=== PATIENT | female | born 1990 ===

== ENCOUNTER 2017-04-10 08:47 | Inpatient (IN) | payer OTHER, SELFPAY ==
[2017-04-10] MEDS ORDERED: Carboprost Tromethamine 250 MCG/1 ML Amp IM PRN (09:20)
[2017-04-10] MEDS ORDERED: Misoprostol 400 MCG (4 X 100 MCG TAB) RECTAL PRN (09:20)
[2017-04-10] MEDS ORDERED: Sodium Chloride 0.9% 10 ML Syringe FLUSH PRN ×2 (09:20→17:28)
[2017-04-10] MEDS ORDERED: Lidocaine 1% 30 ML SDV INJECT PRN (09:20)
[2017-04-10] MEDS ORDERED: Oxytocin 10 Units/1 ML SDV IM ONE (09:20)
[2017-04-10] MEDS ORDERED: Lactated Ringers 500 ML IV ONE (09:20)
[2017-04-10] MEDS ORDERED: Ondansetron 4 MG/2 ML SDV IV PRN (09:20)
[2017-04-10] MEDS ORDERED: Methylergonovine 0.2 MG/1 ML Amp IM PRN (09:20)
[2017-04-10] MEDS ORDERED: fentaNYL 100 MCG/2 ML SDV IVPUSH PRN (09:20)
[2017-04-10] MEDS ORDERED: Oxytocin/Normal Saline 30 UNIT/500 ML BAG IV SCH (09:30)
[2017-04-10] MEDS ORDERED: Penicillin G Potassium 5 MILLUNITS in Sodium Chloride 0.9% 100 ML IV ONE (10:00)
[2017-04-10] MEDS: Lactated Ringers 1,000 ML IV SCH ×2 (10:23→13:16)
[2017-04-10] MEDS ORDERED: fentaNYL 100 MCG/2 ML SDV ONE (12:55)
[2017-04-10] MEDS ORDERED: ePHEDrine 50 MG/ML SDV IV PRN (13:06)
[2017-04-10] MEDS ORDERED: Famotidine 20 MG/2 ML SDV IV PRN (13:08)
--- NOTE | 2017-04-10 13:21 | PCM.LDHP ---
{null, L&D History of Present Illness - General Date of Service: 04/10/17 Admit Problem/Dx: Patient Status Order with Admit Dx/Problem 04/10/17 09:20 Patient Status [ADT] Routine Admission Diagnosis/Problem Admission Diagnosis/Problem care Source of Information: Patient History Limitations: Reports: No Limitations - History of Present Illness Introduction:: 26-year-old at 38 weeks 3 days gestation presents with increased contractions. She reports she has been feeling more uncomfortable over the past 3 days. Her contractions are still 10-15 minutes apart; however, she reports she just felt off and felt that she needed to be assessed. Baby has been very active. No vaginal bleeding or leaking of fluid. Patient does report she has had some blood tinged mucousy discharge over the past several hours. No new headaches or vision changes. She has been taking her Valtrex daily. - Related Data Allergies/Adverse Reactions: Allergies Allergy/AdvReac Type Severity Reaction Status Date / Time No Known Allergies Allergy Verified 04/10/16 08:55 Home Medications: Home Meds . 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 Para: 1 Other OB/BYN History: SAB in 2007, No D&C needed - Past Surgical History GI Surgical History: Reports: Hernia, Abdominal Social & Family History - Family History Cardiac: Reports: Hypertension (Mother, maternal aunt, and maternal grandmother) - Tobacco Use Smoking Status *Q: Never Smoker Second Hand Smoke Exposure: Yes - Recreational Drug Use Recreational Drug Use: No H&P Review of Systems - Review of Systems: Review Of Systems: See Below General: Reports: No Symptoms HEENT: Reports: No Symptoms Pulmonary: Reports: No Symptoms Cardiovascular: Reports: No Symptoms Gastrointestinal: Reports: No Symptoms Genitourinary: Reports: No Symptoms Musculoskeletal: Reports: No Symptoms L&D Exam - Exam Exam: See Below - Vital Signs Weight: 85.275 kg - OB Specific Fundal Height In cm: 39 Movement: Active Heart Tones: Present Heart Tones per Min: 135 Heart Rate (FHR) Variability: Moderate (6-25 bmp) Presentation: Vertex - Jeffrey Score Jeffrey Score Cervix Position: Anterior Jeffrey Score Consistency: Soft Jeffrey Score Effacement: >80% Jeffrey Score Dilation: > 5 cm Jeffrey Score 's Station: -2 Jeffrey Score Total: 11 - Exam General: Alert, Oriented HEENT: Conjunctiva Clear, Mucosa Moist & [place] Lungs: Clear to Auscultation, Normal Respiratory Effort Cardiovascular: Regular Rate, Regular Rhythm Genitourinary: Normal external exam Extremities: Edema (trace) Skin: Warm, Dry, Intact - Patient Data Lab Results last 24 hrs: Laboratory Results - last 24 hr 04/10/17 Range/Units 10:43 WBC 7.0 (5.0-10.0) 10^3/uL RBC 4.81 (4.2-5.4) 10^6/uL Hgb 13.4 (12.0-16.0) g/dL Hct 40.5 (37.0-47.0) % MCV 84.2 (80-100) fL MCH 27.9 (27.0-34.0) pg MCHC 33.1 (33.0-35.0) g/dL Plt Count 247 (150-450) 10^3/uL Result Diagrams: 04/10/17 10:43 - Problem List (1) Positive GBS test SNOMED Code(s): 6696205348336, 3535949871494 ICD Code: B95.1 - STREPTOCOCCUS, GROUP B, CAUSING DISEASES CLASSD ELSWHR Status: Acute Current Visit: Yes (2) History of herpes genitalis SNOMED Code(s): 531941770 ICD Code: Z86.19 - PERSONAL HISTORY OF OTHER INFECTIOUS AND PARASITIC DISEASES Status: Acute Current Visit: Yes (3) Rubella non-immune status, antepartum SNOMED Code(s): 202952876 ICD Code: O99.89 - OTH DISEASES AND CONDITIONS COMPL PREG/CHLDBRTH; Z28.3 - UNDERIMMUNIZATION STATUS Status: Acute Current Visit: Yes (4) Blood type O+ SNOMED Code(s): 465466119 ICD Code: Z67.40 - TYPE O BLOOD, RH POSITIVE Status: Acute Current Visit : No (5) care in third trimester SNOMED Code(s): 924450169, 21046649, 14987699, 599430692, 769778094 ICD Code: Z34.93 - ENCNTR FOR SUPRVSN OF NORMAL PREG, UNSP, THIRD TRIMESTER Status: Acute Current Visit: Yes Problem List Initiated/Reviewed/Updated: Yes Orders Last 24hrs: Active Orders 24 hr Category Date Time Status Patient Status [ADT] Routine ADT 04/10/17 09:20 Active Communication Order [RC] ASDIRECTED Care 04/10/17 09:20 Active Notify Provider Vital Signs OB [RC] ASDIRECTED Care 04/10/17 09:20 Active Notify Provider [RC] PRN Care 04/10/17 09:20 Active Pump Management, Intrathecal [RC] ASDIRECTED Care 04/10/17 09:20 Active Up ad Mary [RC] ASDIRECTED Care 04/10/17 09:20 Active Clear Liquid Diet [DIET] Diet 04/10/17 Lunch Active Acetaminophen [Tylenol] Med 04/10/17 09:20 Active 650 mg PO Q4H PRN Carboprost Tromethamine [Hemabate DS] Med 04/10/17 09:20 Active 250 mcg IM ASDIRECTED PRN Famotidine [Pepcid] Med 04/10/17 13:08 Active 20 mg IV ASDIRECTED PRN Lactated Ringers [Ringers, Lactated] 1,000 ml Med 04/10/17 09:30 Active IV ASDIRECTED Lidocaine 1% [Xylocaine-MPF 1%] Med 04/10/17 09:20 Active 10 ml INJECT ASDIRECTED PRN Methylergonovine [Methergine] Med 04/10/17 09:20 Active 0.2 mg IM ASDIRECTED PRN Misoprostol [Cytotec] Med 04/10/17 09:20 Active 800 mcg RECTAL ASDIRECTED PRN Ondansetron [Zofran] Med 04/10/17 09:20 Active 4 mg IV Q4H PRN Oxytocin/Normal Saline [Pitocin in NS 30 UNIT/500 ML] Med 04/10/17 09:30 Active 30 unit in 500 ml IV TITRATE Penicillin G Potassium [Pfizerpen] 3 millunits Med 04/10/17 14:00 Active Sodium Chloride 0.9% [Normal Saline] 100 ml IV Q4HR Sodium Chloride 0.9% [Saline Flush] Med 04/10/17 09:20 Active 10 ml FLUSH ASDIRECTED PRN ePHEDrine [ePHEDrine Sulfate] Med 04/10/17 13:06 Active 5 mg IV ASDIRECTED PRN fentaNYL [Sublimaze] Med 04/10/17 09:20 Active 50 mcg IVPUSH Q1H PRN Saline Lock Insert [OM.PC] Routine Oth 04/10/17 09:20 Ordered Resuscitation Status Routine Resus Stat 04/10/17 09:20 Ordered Medication Orders Acetaminophen (Tylenol) 650 mg PO Q4H PRN PRN Reason: Pain (Mild 1-3) and fever Carboprost Tromethamine (Hemabate Ds) 250 mcg IM ASDIRECTED PRN PRN Reason: HEMORRHAGE Ephedrine Sulfate (Ephedrine Sulfate) 5 mg IV ASDIRECTED PRN PRN Reason: BLOOD PRESSURE Famotidine (Pepcid) 20 mg IV ASDIRECTED PRN PRN Reason: PRURITIS Fentanyl (Sublimaze) 50 mcg IVPUSH Q1H PRN PRN Reason: Pain (moderate 4-6) Lactated Ringer's (Ringers, Lactated) 1,000 mls @ 125 mls/hr IV ASDIRECTED MAITE Last Admin: 04/10/17 13:16 Dose: 125 mls/hr Infusion: 04/10/17 13:16 Dose: 125 mls/hr Admin: 04/10/17 10:23 Dose: 125 mls/hr Penicillin G Potassium 3 (millunits/ Sodium Chloride) 100 mls @ 200 mls/hr IV Q4HR MAITE Oxytocin/Sodium Chloride (Pitocin In Ns 30 Unit/500 Ml) 30 unit in 500 mls @ 2 mls/hr IV TITRATE MAITE; 2 MUNITS/MIN PRN Reason: Protocol Lidocaine HCl (Xylocaine-Mpf 1%) 10 ml INJECT ASDIRECTED PRN PRN Reason: Perineal Repair Methylergonovine Maleate (Methergine) 0.2 mg IM ASDIRECTED PRN PRN Reason: Hemorrhage Misoprostol (Cytotec) 800 mcg RECTAL ASDIRECTED PRN PRN Reason: Hemorrhage Ondansetron HCl (Zofran) 4 mg IV Q4H PRN PRN Reason: Nausea/Vomiting Last Admin: 04/10/17 12:34 Dose: 4 mg Sodium Chloride (Saline Flush) 10 ml FLUSH ASDIRECTED PRN PRN Reason: Keep Vein Open Assessment/Plan Comment:: 26-year-old at 38 weeks 3 days with advanced cervical dilation and GBS positive status 1. Due to advanced cervical dilation, will admit to labor and delivery 2. Will initiate penicillin for GBS positive status 3. Will AROM when able. Will start Pitocin if needed. 4. Patient does desire intrathecal later in labor 5. Expectant management. Anticipate vaginal delivery. Breann Gibbons MD }
[2017-04-10] MEDS ORDERED: Penicillin G Potassium 3 MILLUNITS in Sodium Chloride 0.9% 100 ML IV SCH (14:00)
--- NOTE | 2017-04-10 14:00 | PCM.PRNOTE ---
{null, - Free Text/Narrative Note: Called to place intrathecal for pain relief in this laboring patient. After monitors placed and consent signed, mask and sterile gloves on, proceeded with intrathecal. With patient in sitting position, sterile prep/drape. Skin wheal at L3-4 with 1 % lidocaine. LP X 1 at L3-4 with 25 g pencan spinal needle. Positive, free flowing CSF without heme or paresthesia. Then 20mcg of Sufenta + 30 mcg of fentanyl + 6 mg (0.8ml) of 0.75% hyperbaric mpf spinal marcaine, + 0.4ml preservative free normal saline plus epi wash given intrathecally. Pt without hypotension. FHT's remained stable. Pt reported pain relief with subsequent contractions. }
[2017-04-10] MEDS ORDERED: fentaNYL 100 MCG/2 ML SDV ITHECAL ONE (16:28)
--- NOTE | 2017-04-10 17:27 | PCM.DEL ---
{null, L & D Note - General Info Date of Service: 04/10/17 - Delivery Note Labor: spontaneous, augmented by ARM Delivery Outcome: Livebirth Delivery Method: Spontaneous Vaginal Delivery Presentation: Right Occiput Anterior (MANDA) Nuchal cord: present, reduced Anesthesia Type: Intrathecal Amniotic Fluid Description: Clear Episiotomy Type: None Laceration: 2nd degree, perineal Suture type: vicryl Suture size: 3-0 Placenta: intact, spontaneous Cord: 3 vessels Estimated blood loss: 175 Resuscitation needed: Yes [place]: suctioned, blanket used Score 1 min: 6 Score 5 min: 8 Delivery Comments (Free Text/Narrative):: 26-year-old now presented to labor and delivery with some increased contractions. She was found to have advanced cervical dilation at 5 cm. Because of this and her GBS positive status, she was admitted for management of labor despite having an inefficient contraction pattern initially. Patient progressed to 6 cm dilation over the initial 4 hours she was on labor and delivery. Over this time she also received her penicillin for GBS positive status. Membranes were ruptured for augmentation of labor. Approximately 4 hours after this patient progressed to complete dilation. She did require a very small dose of Pitocin at around 9 cm to further augment labor. After arriving to complete dilation, patient pushed for approximately 17 minutes. At that time she delivered a viable male infant with Apgars of 6 and 8 at one and 5 minutes respectively. Short time later, the placenta delivered spontaneously. It did appear to be intact. Three-vessel cord was noted. A second-degree perineal laceration was repaired in the usual fashion. Her uterus was noted to be firm, and bleeding was appropriate. There were no immediate complications, and the patient tolerated this well. - Patient Data Vitals - most recent: Last Vital Signs Temp 36.6 C 04/10/17 08:56 Pulse 88 04/10/17 11:00 Resp 18 04/10/17 08:56 BP 115/70 04/10/17 11:00 Pulse Ox Weight - most recent: 85.275 kg I&O - last 24 hours: Intake & Output 04/10/17 04/10/17 04/10/17 06:59 14:59 22:59 Intake Total 1200 1000 Output Total 475 Balance 1200 525 Lab Results last 24 hrs: Laboratory Results - last 24 hr 04/10/17 Range/Units 10:43 WBC 7.0 (5.0-10.0) 10^3/uL RBC 4.81 (4.2-5.4) 10^6/uL Hgb 13.4 (12.0-16.0) g/dL Hct 40.5 (37.0-47.0) % MCV 84.2 (80-100) fL MCH 27.9 (27.0-34.0) pg MCHC 33.1 (33.0-35.0) g/dL Plt Count 247 (150-450) 10^3/uL Med Orders - Current: Current Medications Acetaminophen (Tylenol) 650 mg PO Q4H PRN PRN Reason: Pain (Mild 1-3) and fever Carboprost Tromethamine (Hemabate Ds) 250 mcg IM ASDIRECTED PRN PRN Reason: HEMORRHAGE Ephedrine Sulfate (Ephedrine Sulfate) 5 mg IV ASDIRECTED PRN PRN Reason: BLOOD PRESSURE Famotidine (Pepcid) 20 mg IV ASDIRECTED PRN PRN Reason: PRURITIS Fentanyl (Sublimaze) 50 mcg IVPUSH Q1H PRN PRN Reason: Pain (moderate 4-6) Lactated Ringer's (Ringers, Lactated) 1,000 mls @ 125 mls/hr IV ASDIRECTED MAITE Last Admin: 04/10/17 13:16 Dose: 125 mls/hr Penicillin G Potassium 3 (millunits/ Sodium Chloride) 100 mls @ 200 mls/hr IV Q4HR MAITE Last Admin: 04/10/17 14:00 Dose: 200 mls/hr Oxytocin/Sodium Chloride (Pitocin In Ns 30 Unit/500 Ml) 30 unit in 500 mls @ 2 mls/hr IV TITRATE MAITE; 2 MUNITS/MIN PRN Reason: Protocol Last Titration: 04/10/17 16:03 Dose: 4 mls/hr Lidocaine HCl (Xylocaine-Mpf 1%) 10 ml INJECT ASDIRECTED PRN PRN Reason: Perineal Repair Methylergonovine Maleate (Methergine) 0.2 mg IM ASDIRECTED PRN PRN Reason: Hemorrhage Misoprostol (Cytotec) 800 mcg RECTAL ASDIRECTED PRN PRN Reason: Hemorrhage Ondansetron HCl (Zofran) 4 mg IV Q4H PRN PRN Reason: Nausea/Vomiting Last Admin: 04/10/17 12:34 Dose: 4 mg Sodium Chloride (Saline Flush) 10 ml FLUSH ASDIRECTED PRN PRN Reason: Keep Vein Open Discontinued Medications Fentanyl (Sublimaze) Confirm Administered Dose 100 mcg .ROUTE .STK-MED ONE Stop: 04/10/17 12:56 Fentanyl (Sublimaze) 30 mcg ITHECAL .STK-MED ONE Stop: 04/10/17 16:29 Lactated Ringer's (Ringers, Lactated) 500 mls @ 999 mls/hr IV .BOLUS ONE Stop: 04/10/17 09:50 Last Admin: 04/10/17 12:37 Dose: 999 mls/hr Penicillin G Potassium 5 (millunits/ Sodium Chloride) 100 mls @ 200 mls/hr IV ONETIME ONE Stop: 04/10/17 10:29 Last Admin: 04/10/17 10:23 Dose: 200 mls/hr Oxytocin (Pitocin) 10 unit IM ONETIME ONE Stop: 04/10/17 09:21 Last Admin: 04/10/17 15:20 Dose: Not Given Sufentanil Citrate (Sufenta) Confirm Administered Dose 50 mcg .ROUTE .STK-MED ONE Stop: 04/10/17 12:57 Sufentanil Citrate (Sufenta) 20 mcg IV .STK-MED ONE Stop: 04/10/17 16:29 - Problem List & Annotations (1) Positive GBS test SNOMED Code(s): 5108815641428, 0866320056976 Code(s): B95.1 - STREPTOCOCCUS, GROUP B, CAUSING DISEASES CLASSD [facility] Status: Acute Current Visit: Yes (2) History of herpes genitalis SNOMED Code(s): 238288811 Code(s): Z86.19 - PERSONAL HISTORY OF OTHER INFECTIOUS AND PARASITIC DISEASES Status: Acute Current Visit: Yes (3) Rubella non-immune status, antepartum SNOMED Code(s): 008539118 Code(s): O99.89 - OTH DISEASES AND CONDITIONS COMPL PREG/CHLDBRTH; Z28.3 - UNDERIMMUNIZATION STATUS Status: Acute Current Visit: Yes (4) Blood type O+ SNOMED Code(s): 416345868 Code(s): Z67.40 - TYPE O BLOOD, RH POSITIVE Status: Acute Current Visit: No (5) care in third trimester SNOMED Code(s): 424877904, 77798977, 99817513, 486777473, 732654398 Code(s): Z34.93 - ENCNTR FOR SUPRVSN OF NORMAL PREG, UNSP, THIRD TRIMESTER Status: Acute Current Visit: Yes (6) Obstetric vaginal laceration, delivered, current hospitalization SNOMED Code(s): 897365549 Code(s): O71.4 - OBSTETRIC HIGH VAGINAL LACERATION ALONE Status: Acute Current Visit: No (7) Rubella nonimmune status, delivered, current hospitalization SNOMED Code(s): 877450003 Code(s): O99.89 - OTH DISEASES AND CONDITIONS COMPL PREG/CHLDBRTH; Z28.3 - UNDERIMMUNIZATION STATUS Status: Acute Current Visit: No (8) Vaginal delivery SNOMED Code(s): 555258867 Code(s): O80 - ENCOUNTER FOR FULL-TERM UNCOMPLICATED DELIVERY Status: Acute Current Visit: No - Problem List Review Problem List Initiated/Reviewed/Updated: Yes - My Orders Last 24 Hours: My Active Orders 04/10/17 09:20 Patient Status [ADT] Routine Communication Order [RC] ASDIRECTED Notify Provider Vital Signs OB [RC] ASDIRECTED Notify Provider [RC] PRN Pump Management, Intrathecal [RC] ASDIRECTED Up ad Mary [RC] ASDIRECTED Acetaminophen [Tylenol] 650 mg PO Q4H PRN Carboprost Tromethamine [Hemabate DS] 250 mcg IM ASDIRECTED PRN Lidocaine 1% [Xylocaine-MPF 1%] 10 ml INJECT ASDIRECTED PRN Methylergonovine [Methergine] 0.2 mg IM ASDIRECTED PRN Misoprostol [Cytotec] 800 mcg RECTAL ASDIRECTED PRN Ondansetron [Zofran] 4 mg IV Q4H PRN Sodium Chloride 0.9% [Saline Flush] 10 ml FLUSH ASDIRECTED PRN fentaNYL [Sublimaze] 50 mcg IVPUSH Q1H PRN Saline Lock Insert [OM.PC] Routine Resuscitation Status Routine 04/10/17 09:30 Lactated Ringers [Ringers, Lactated] 1,000 ml IV ASDIRECTED Oxytocin/Normal Saline [Pitocin in NS 30 UNIT/500 ML] 30 unit in 500 ml IV TITRATE 04/10/17 13:06 ePHEDrine [ePHEDrine Sulfate] 5 mg IV ASDIRECTED PRN 04/10/17 13:08 Famotidine [Pepcid] 20 mg IV ASDIRECTED PRN 04/10/17 14:00 Penicillin G Potassium [Pfizerpen] 3 millunits Sodium Chloride 0.9% [Normal Saline] 100 ml IV Q4HR 04/10/17 Lunch Clear Liquid Diet [DIET] - Assessment Assessment:: 26-year-old now status post spontaneous vaginal delivery - Plan Plan:: 1. Initiate routine cares 2. Patient does plan to breast-feed. consult place. 3. Non-rubella immune. Will need measles/mumps/rubella prior to discharge. 4. Anticipate discharge 03/13/17. Breann Gibbons MD }
[2017-04-10] MEDS ORDERED: Simethicone 80 MG Tab.Chew PO PRN (17:28)
[2017-04-10] MEDS ORDERED: Benzocaine/Menthol 20%-0.5% Spray 56 GM Canister TOP PRN (17:28)
[2017-04-10] MEDS: Ibuprofen 800 MG Tab PO PRN (21:37)
[2017-04-10] MEDS: Docusate Sodium 100 MG Cap PO PRN (21:37)
[2017-04-11] MEDS: Acetaminophen 325 MG Tab PO PRN ×3 (01:49→20:21)
[2017-04-11] MEDS: Ibuprofen 800 MG Tab PO PRN ×2 (06:00→14:07)
[2017-04-11] MEDS: Docusate Sodium 100 MG Cap PO PRN ×2 (09:53→20:21)
[2017-04-11] MEDS: Prenatal Multivitamin with Calcium/Folic Acid/Iron Tab PO SCH (09:53)
--- NOTE | 2017-04-11 14:41 | PCM.PNPP ---
{null, - General Info Date of Service: 04/11/17 Subjective Update: 26-year-old day #1 status post normal spontaneous vaginal delivery. Patient is doing well. She has no complaints today. She is tolerating a general diet. She is urinating without difficulty, and has passed gas but has not yet had a bowel movement. She has no dizziness or lightheadedness upon standing or ambulating. Nursing has no concerns. She is breast-feeding and states this is going well. Functional Status: Reports: pain controlled, tolerating diet, ambulating, urinating - Review of Systems General: Reports: No Symptoms HEENT: Reports: no symptoms Pulmonary: Reports: no symptoms Cardiovascular: Reports: No Symptoms Gastrointestinal: Reports: No symptoms Genitourinary: Reports: no symptoms Musculoskeletal: Reports: no symptoms - General Info Date of Service: 04/11/17 - Patient Data Vital Signs - most recent: Last Vital Signs Temp 36.6 C 04/11/17 08:00 Pulse 82 04/11/17 08:00 Resp 18 04/11/17 08:00 BP 103/53 L 04/11/17 08:00 Pulse Ox 95 04/11/17 08:00 Weight - most recent: 85.275 kg I&O - last 24 hours: Intake & Output 04/10/17 04/11/17 04/11/17 22:59 06:59 14:59 Intake Total 1000 Output Total 475 Balance 525 Med Orders - Current: Current Medications Acetaminophen (Tylenol) 650 mg PO Q4H PRN PRN Reason: Pain (Mild 1-3) and fever Last Admin: 04/11/17 09:56 Dose: 650 mg Benzocaine/Menthol (Dermoplast Pain Relief [place]) 0 gm TOP Q4H PRN PRN Reason: Perineal comfort measures Carboprost Tromethamine (Hemabate Ds) 250 mcg IM ASDIRECTED PRN PRN Reason: HEMORRHAGE Docusate Sodium (Colace) 100 mg PO BID PRN PRN Reason: Constipation Last Admin: 04/11/17 09:53 Dose: 100 mg Ephedrine Sulfate (Ephedrine Sulfate) 5 mg IV ASDIRECTED PRN PRN Reason: BLOOD PRESSURE Famotidine (Pepcid) 20 mg IV ASDIRECTED PRN PRN Reason: PRURITIS Oxytocin/Sodium Chloride (Pitocin In Ns 30 Unit/500 Ml) 30 unit in 500 mls @ 2 mls/hr IV TITRATE MAITE; 2 MUNITS/MIN PRN Reason: Protocol Last Titration: 04/10/17 20:23 Dose: Infused Ibuprofen (Motrin) 800 mg PO Q8H PRN PRN Reason: Mild Pain or Fever Last Admin: 04/11/17 14:07 Dose: 800 mg Methylergonovine Maleate (Methergine) 0.2 mg IM ASDIRECTED PRN PRN Reason: Hemorrhage Misoprostol (Cytotec) 800 mcg RECTAL ASDIRECTED PRN PRN Reason: Hemorrhage Ondansetron HCl (Zofran) 4 mg IV Q4H PRN PRN Reason: Nausea/Vomiting Last Admin: 04/10/17 12:34 Dose: 4 mg Prenat Multivit/[place]/Iron/Folic Ac ( Plus Iron) 1 each PO DAILY MAITE Last Admin: 04/11/17 09:53 Dose: 1 each Simethicone (Simethicone) 80 mg PO Q4H PRN PRN Reason: Gas Sodium Chloride (Saline Flush) 10 ml FLUSH ASDIRECTED PRN PRN Reason: Keep Vein Open Discontinued Medications Fentanyl (Sublimaze) 50 mcg IVPUSH Q1H PRN PRN Reason: Pain (moderate 4-6) Fentanyl (Sublimaze) Confirm Administered Dose 100 mcg .ROUTE .STK-MED ONE Stop: 04/10/17 12:56 Last Admin: 04/10/17 20:07 Dose: Not Given Fentanyl (Sublimaze) 30 mcg ITHECAL .STK-MED ONE Stop: 04/10/17 16:29 Lactated Ringer's (Ringers, Lactated) 500 mls @ 999 mls/hr IV .BOLUS ONE Stop: 04/10/17 09:50 Last Admin: 04/10/17 12:37 Dose: 999 mls/hr Lactated Ringer's (Ringers, Lactated) 1,000 mls @ 125 mls/hr IV ASDIRECTED MAITE Last Admin: 04/10/17 13:16 Dose: 125 mls/hr Penicillin G Potassium 5 (millunits/ Sodium Chloride) 100 mls @ 200 mls/hr IV ONETIME ONE Stop: 04/10/17 10:29 Last Admin: 04/10/17 10:23 Dose: 200 mls/hr Penicillin G Potassium 3 (millunits/ Sodium Chloride) 100 mls @ 200 mls/hr IV Q4HR MAITE Last Admin: 04/10/17 14:00 Dose: 200 mls/hr Lidocaine HCl (Xylocaine-Mpf 1%) 10 ml INJECT ASDIRECTED PRN PRN Reason: Perineal Repair Oxytocin (Pitocin) 10 unit IM ONETIME ONE Stop: 04/10/17 09:21 Last Admin: 04/10/17 15:20 Dose: Not Given Sodium Chloride (Saline Flush) 10 ml FLUSH ASDIRECTED PRN PRN Reason: Keep Vein Open Sufentanil Citrate (Sufenta) Confirm Administered Dose 50 mcg .ROUTE .STK-MED ONE Stop: 04/10/17 12:57 Last Admin: 04/10/17 20:07 Dose: Not Given Sufentanil Citrate (Sufenta) 20 mcg IV .STK-MED ONE Stop: 04/10/17 16:29 - Infant Interaction Disposition, : to Nursery Infant Feeding: Breastfed Infant; Nursed Well Support Person: - Recovery Exam Fundal Tone: Firm Fundal Level: 2 Fingerbreadths Above Umbilicus Fundal Placement: Midline Lochia Amount: Small Lochia Color: Rubra/Red Perineum Description: Edematous Episiotomy/Laceration: Approximated Bladder Status: Nonpalpable Urinary Elimination: Voided - Exam General: alert, oriented Lungs: Clear to auscultation, Normal respiratory effort Cardiovascular: Regular Rate, Regular Rhythm, No Murmurs Extremities: edema (Trace edema to lower extremities bilaterally) Skin: warm, dry, intact - Problem List & Annotations (1) Positive GBS test SNOMED Code(s): 2778320161627, 9162077591268 Code(s): B95.1 - STREPTOCOCCUS, GROUP B, CAUSING DISEASES CLASSD [facility] Status: Acute Current Visit: Yes (2) History of herpes genitalis SNOMED Code(s): 062391195 Code(s): Z86.19 - PERSONAL HISTORY OF OTHER INFECTIOUS AND PARASITIC DISEASES Status: Acute Current Visit: Yes (3) Rubella non-immune status, antepartum SNOMED Code(s): 829615535 Code(s): O99.89 - OTH DISEASES AND CONDITIONS COMPL PREG/CHLDBRTH; Z28.3 - UNDERIMMUNIZATION STATUS Status: Acute Current Visit: Yes (4) Blood type O+ SNOMED Code(s): 972851746 Code(s): Z67.40 - TYPE O BLOOD, RH POSITIVE Status: Acute Current Visit: No (5) care in third trimester SNOMED Code(s): 144130666, 45311181, 95543437, 412988068, 886203931 Code(s): Z34.93 - ENCNTR FOR SUPRVSN OF NORMAL PREG, UNSP, THIRD TRIMESTER Status: Acute Current Visit: Yes (6) Obstetric vaginal laceration, delivered, current hospitalization SNOMED Code(s): 628193784 Code(s): O71.4 - OBSTETRIC HIGH VAGINAL LACERATION ALONE Status: Acute Current Visit: No (7) Rubella nonimmune status, delivered, current hospitalization SNOMED Code(s): 108275039 Code(s): O99.89 - OTH DISEASES AND CONDITIONS COMPL PREG/CHLDBRTH; Z28.3 - UNDERIMMUNIZATION STATUS Status: Acute Current Visit: No (8) Vaginal delivery SNOMED Code(s): 876191808 Code(s): O80 - ENCOUNTER FOR FULL-TERM UNCOMPLICATED DELIVERY Status: Acute Current Visit: No - Problem List Review Problem List Initiated/Reviewed/Updated: Yes - My Orders Last 24 Hours: My Active Orders 04/10/17 17:28 Vital Signs [RC] 08,20 Consult to Hospital Attendant [CONS] Routine Benzocaine/Menthol [Dermoplast Pain Relief [place]] See Dose Instructions TOP Q4H PRN Docusate Sodium [Colace] 100 mg PO BID PRN Ibuprofen [Motrin] 800 mg PO Q8H PRN Simethicone 80 mg PO Q4H PRN Assess Lochia [WOMSER] Per Unit Routine Assess Uterine Involution [WOMSER] Per Unit Routine Breast Pump [WOMSER] Per Unit Routine Ice Therapy [OM.PC] Per Unit Routine Perineal Care [OM.PC] Per Unit Routine Saline Lock Insert [OM.PC] Urgent Sitz Bath [OM.PC] Per Unit Routine 04/10/17 Dinner Regular Diet [DIET] 04/11/17 09:00 Vit with Ca/FA/Iron [ Plus Iron] 1 each PO DAILY - Assessment Assessment:: 26-year-old now day #1 status post spontaneous vaginal delivery - Plan Plan:: 1. Continue routine cares 2. Patient does plan to breast-feed. consult place. 3. Non-rubella immune. Will need measles/mumps/rubella prior to discharge. 4. Anticipate discharge 03/13/17. Patient will need a follow-up with me in [address] Lowery will see the patient tomorrow and discharge her in my absence. Breann Gibbons MD }
[2017-04-12] MEDS: Ibuprofen 800 MG Tab PO PRN (08:08)
[2017-04-12] MEDS: Prenatal Multivitamin with Calcium/Folic Acid/Iron Tab PO SCH (08:08)
[2017-04-12] MEDS: Docusate Sodium 100 MG Cap PO PRN (08:10)
[2017-04-12] MEDS ORDERED: Measles, Mumps & Rubella Vaccine 0.5 ML SDV SUBCUT ONE (11:14)
[2017-04-12 13:14] VITALS: BP 132/71
--- NOTE | 2017-04-13 11:35 | DISCH ---
{null, ADMIT DIAGNOSES: 1. Intrauterine at 38-3/7th weeks. 2. Active labor. Group B Streptococcus positive. 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 Rubella nonimmune. 3. 3, para 1. DISCHARGE DIAGNOSES: 1. Intrauterine at 38-3/7th weeks-delivered. 2. Active labor. Group B Streptococcus positive. 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 Rubella nonimmune. 3. 3, para 1. 4. Second-degree perineal laceration-repaired. HISTORY OF PRESENT ILLNESS: Please see H and P. SUMMARY OF HOSPITAL COURSE: The patient was admitted on the above date with the above diagnoses. She was having advanced cervical dilation, received GBS treatment with penicillin, membranes were ruptured and approximately 4 hours after that, the patient progressed to complete dilation, received a small dose of Pitocin, went on to deliver a male with scores of 6 and 8 with a weight of 8 pounds 8 ounces, 3865 g (with a second-degree perineal laceration- repaired. For day #1, please see progress note. For day #2, date of discharge, the patient was tolerating p.o., ambulating, urinating, passing flatus, requesting discharge. PHYSICAL EXAMINATION: Vital Signs: Last set of vitals updated and listed in the chart; temperature 98.7, heart rate 72, blood pressure 118/71, respiratory rate 16. Lungs: Clear to auscultation bilaterally. Heart: S1 and S2. Regular rate and rhythm. Abdomen: Firm uterus around the umbilicus. Extremities: Trace pedal edema. No calf pain. CONDITION ON DISCHARGE COMPARED TO CONDITION ON ADMISSION: Improved. DISCHARGE INSTRUCTIONS: 1. Diet as tolerated. 2. Activity: No lifting more than 20 pounds. No sit-ups, straining, and pelvic rest for next 6 weeks with immediate return to fertility discussed with the patient. 3. Reasons to return or go to the emergency room were discussed with the patient in detail including, but not limited to, temperature greater than 100.4, foul-smelling discharge, red, hot tender breasts, or increased vaginal bleeding. DISCHARGE MEDICATIONS: [id number] ibuprofen for pain. FOLLOWUP: Follow up with Dr. Gibbons, most likely 6-week , and her baby is to follow up tomorrow with Dr. Gibbons, and I did discuss this with the patient and she understands and agrees with the above treatment plan. [facility] /[id number] }
--- NOTE | 2017-04-17 16:40 | PCM48HPAN ---
{null, Post Anesthesia Note - EVALUATION WITHIN 48HRS OF ANESTHETIC Vital Signs in Normal Range: Yes Patient Participated in Evaluation: Yes Respiratory Function Stable: Yes Airway Patent: Yes Cardiovascular Function Stable: Yes Hydration Status Stable: Yes Pain Control Satisfactory: Yes Nausea and Vomiting Control Satisfactory: Yes Mental Status Recovered: Yes - COMMENTS/OBSERVATIONS Free Text/Narrative:: no c/o PDPH, full return of motor and sensory function. No post anesthesia complications noted. }
== END 2017-04-12 11:30 | disposition home or self-care (01) | DRG 774 ==
LOC: DL.OBCHECK 08:47 → DL.OB 09:20 → UNDOADMOB 09:20 → OBSVTOIN 15:50 → INTOOBSV 15:50 → OBSVTOIN 17:03 → DL.OB 17:03 → DL.MS 21:25
PROVIDERS: ADMIT Family Medicine; ATTEND Family Medicine
PROC: 10E0XZZ Delivery of Products of Conception, External Approach (ICD-10-PCS; principal; 2017-04-10)
PROC: 0KQM0ZZ Repair Perineum Muscle, Open Approach (ICD-10-PCS; 2017-04-10)
PROC: 10907ZC Drainage of Amniotic Fluid, Therapeutic from Products of Conception, Via Natural or Artificial Opening (ICD-10-PCS; 2017-04-10)
PROC: 00HU33Z Insertion of Infusion Device into Spinal Canal, Percutaneous Approach (ICD-10-PCS; 2017-04-10)
PROC: 3E0R3CZ (ICD-10-PCS; 2017-04-10)
DX: O98.82 Other maternal infectious and parasitic diseases complicating childbirth (principal); B95.1 Streptococcus, group B, as the cause of diseases classified elsewhere; Z3A.38 38 weeks gestation of pregnancy; Z37.0 Single live birth; O70.1 Second degree perineal laceration during delivery; O69.81X0 Labor and delivery complicated by cord around neck, without compression, not applicable or unspecified; Z86.19 Personal history of other infectious and parasitic diseases
CPT/HCPCS: 36415; 51701; 85027; 90707; A9270-GY; J2405; J2540; J2590; J3010; J7050; J7120